=== PATIENT | female | born 2000 | race Caucasian/White ===

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

== ENCOUNTER 2019-09-16 05:24 | Inpatient (IN) | payer BC ==
[~2019-09-16] VITALS: Ht 160 cm; Wt 76.4 kg
[2019-09-16 06:20] LABS: HEMATOCRIT 38.7 % (36.0-48.0); HEMOGLOBIN 12.3 g/dL (12-16); MCH 29.7 pg (26.0-34.0); MCHC 31.8 g/dL (31.0-37.0); MCV 93.5 fL (80.0-100.0); MEAN PLATELET VOLUME 11.6 fL (7.4-10.4); RBC 4.14 10x6/uL (4.00-5.40); RDW 13.2 % (11.5-14.5); WBC 11.4 10x3/uL (4.8-10.8)
[2019-09-16 06:30] LABS: UDS - AMPHET NEGATIVE QUAL (NEGATIVE); UDS - BARB NEGATIVE QUAL (NEGATIVE); UDS - BENZO NEGATIVE QUAL (NEGATIVE); UDS - COCAINE NEGATIVE QUAL (NEGATIVE); UDS - OPIATE NEGATIVE QUAL (NEGATIVE); UDS - PCP NEGATIVE QUAL (NEGATIVE); UDS - THC NEGATIVE QUAL (NEGATIVE)
[2019-09-16] MEDS ORDERED: PRENAVITE1 TAB PO (06:35)
[2019-09-16 06:38] VITALS: BP 119/71; Ht 160 cm; Wt 76.4 kg
--- NOTE | 2019-09-16 21:45 | NUR ---
RECEIVED REPORT ON PT FROM SATINDER LUCAS
--- NOTE | 2019-09-16 22:00 | NUR ---
RECIEVED PT FROM L&D. PT WALKED OVER TO ROOM. SHE HAS NKDA. SHE HAS A LEFT WRIST SL. HER FUNDUS IS FIRM 2 BELOW. SHE HAS A RIGHT SUBLABIAL AND A VAGINAL LACERATION. ASSESSMENT COMPLETED. PT MOTHER IS WITH HER. PT HAS A BABY BOY.
--- NOTE | 2019-09-16 23:00 | NUR ---
PT IS COMPLAINING OF SEVERE PAIN IN HER [place] AREA. SHE IS TRYING NO TO CRY. CALLED DR. BRIGGS AND MED ORDER GIVEN.
--- NOTE | 2019-09-16 23:15 | NUR ---
PT RECEIVED A PERCOCET 5 MG PO WHICH IS A ONE TIME ORDER. SHE RATES HER PAIN AN 8. SHE IS VOIDING WELL. HER LOCHIA IS MEDIUM AMOUNT. SHE HAS TROUBLE GETTING OUT OF BED FROM DISCOMFORT IN YAHIR AREA. PT MOTHER IN ROOM TO STAY THE NIGHT.
[2019-09-16 23:50] VITALS: BP 123/78
--- NOTE | 2019-09-17 | NUR ---
PT IS RESTING QUIETLY AT THIS TIME. SHE IS WATCHING TV. THE BABY IS OUT OF THE ROOM AND I ENCOURAGED HER TO SLEEP WHILE WAITING FOR THE BABY TO RETURN.
--- NOTE | 2019-09-17 02:00 | NUR ---
PT IS RESTING WELL. NO C/O OR NEEDS AT THIS TIME.
--- NOTE | 2019-09-17 04:00 | NUR ---
PT BREASTFEEDOMG BABY. NO C/O OR NEEDS.
--- NOTE | 2019-09-17 05:30 | NUR ---
WALKED IN ROOM TO CHECK ON PT. SHE WAS DOZING HOLDING THE BABY. I EXPLAINED THAT THE BABY COULD NOT SLEEP IN THE BED WITH HER. I PLACED THE BABY IN THE CRIB BY THE PT MOTHER.
--- NOTE | 2019-09-17 05:39 | NUR ---
PT C/O PAIN. RECEICED PO MEDICATION. PT IS REALLY HAVING A HARD TIME GETTING OUT OF BED. THIS IS HER MOST PAINFUL TIME. SHE IS RESTING NOW.
[2019-09-17 06:10] LABS: RAPID PLASMA REAGIN Non Reactive (Non Reactive)
[2019-09-17 07:00] VITALS: BP 103/57
--- NOTE | 2019-09-17 07:48 | NUR ---
REPORT GIVEN TO SATINDER POWELL
[2019-09-17 08:02] LABS: BASOPHILS 0.1 % (0-2); EOSINOPHILS 0.5 % (0-7); HEMATOCRIT 32.3 % (36.0-48.0); HEMOGLOBIN 10.5 g/dL (12-16); IMMATURE GRANULOCYTES 0.2 % (0-5); LYMPHOCYTES 9.2 % (15-50); MCH 30.2 pg (26.0-34.0); MCHC 32.5 g/dL (31.0-37.0); MCV 92.8 fL (80.0-100.0); MEAN PLATELET VOLUME 11.5 fL (7.4-10.4); PLATELET COUNT 162 10x3/uL (130-400); RBC 3.48 10x6/uL (4.00-5.40); RDW 13.2 % (11.5-14.5)
--- NOTE | 2019-09-17 11:32 | NUR ---
0800 MOTHER CAME OUT ASKING FOR ICE. ICE PROVIDED
--- NOTE | 2019-09-17 11:32 | NUR ---
0900 PT ASLEEP N BED BABY NOT IN ROOM PT MOTHER REMAINS AT BEDSIDE
--- NOTE | 2019-09-17 11:33 | NUR ---
0948 DR SYKES AT BEDSIDE UPDATING PATIENT
--- NOTE | 2019-09-17 11:34 | NUR ---
1050 PT IN BED RESTING QUIETLY
--- NOTE | 2019-09-17 13:18 | NUR ---
1312 C/O PAIN 11/11 TO ABDOMINAL AREA MOTRIN 600 MG PO GIVEN
--- NOTE | 2019-09-17 16:38 | MORECARE ---
CASE MANAGEMENT DISCHARGE SUMMARY PATIENT: AILEEN WINCHESTER UNIT: [id number] ADM DATE: 09/16/19 AGE: 18 : [birth year] SEX: F ROOM/BED: D.1222 AUTHOR: CINDY BARNARD PHYSICIAN: REFERRING PHYSICIAN: NICKO BRIGGS DO DATE OF SERVICE: 09/17/19 Discharge Plan Patient Name: AILEEN WINCHESTER Facility: [facility]:[place] : 2000 Planned Disposition: Home Anticipated Discharge Date: 09/17/19 Discharge Date: Expected LOS: 1 Initial Reviewer: [email or web address] Initial Review Date: 09/16/2019 Generated: 09/17/19 5:38 pm Patient Name: AILEEN WINCHESTER Page [id number] at 1638 All edits/amendments must be made on the electronic document DICTATION DATE: 09/17/198 HEAD OF MARKETING: PATRICK 09/17/19 1638 RPT#: [id number] DC DATE: STATUS: ADM IN [facility] [address] [place] [address] END OF REPORT
--- NOTE | 2019-09-17 16:41 | NUR ---
1600 CHECKED IN ON MOTHER AND BABY DENIED ANY COMPLAINTS AT PRESENT MOTHER HAD BABY IN BED AND WAS NURSING HIM. HER VISITOR WAS NOT PRESENT AT THIS TIME
--- NOTE | 2019-09-17 19:00 | NUR ---
REPORT TAKEKN BY COOPER, RN
[2019-09-17 19:20] VITALS: BP 124/70
--- NOTE | 2019-09-17 19:45 | NUR ---
PT ASSESSMENT COMPLETED. PT IS STANDING BY THE PT CRIB TOUCHING THE BABY. SHE IS TALKING TO THE BABY CLAUS ON THE PHONE AND SHOWING HIM THE BABY. I ASKED HER IF SHE WAS GOING TO PICK THE BABY UP AND SHE STATES "NO, I DON'T WANT TO SPOIL HIM" SHE HAS BEEN HEARING THIS FROM HER MOTHER. I TOLD HER AGAIN THAT NEW BABIES CANNOT BE SPOILED AND HE BABY NEEDS TO BE HELD SOME AT LEAST. SHE GAVE NO REPLY TO THIS.
--- NOTE | 2019-09-17 20:45 | NUR ---
PT AND HER MOM ARE WATCHING TV. BABY IS IN THE CRIB. NO C/O OR NEEDS AT THIS TIME.
--- NOTE | 2019-09-17 21:18 | NUR ---
PT IN BED RESTING. NO C/O
--- NOTE | 2019-09-17 23:52 | NUR ---
PT IS RESTING QUIETLY IN HER ROOM. HER MOM IS THERE AND BABY IN THE CRIB SLEEPING.
--- NOTE | 2019-09-18 02:00 | NUR ---
PT IS AWAKE AND HOLDING HER BABY IN HER ARMS. SHE IS BREAST FEEDING. SHE IS DOING WELL. SHE STATES HER PAIN IS MUCH BETTER
--- NOTE | 2019-09-18 04:00 | NUR ---
PT IS AWAKE FEEDING HER BABY. SHE HAS NO C/O OR NEEDS AT THIS TIME. SHE IS BONDING MUCH BETTER TONIGHT WITH HER BABY.
--- NOTE | 2019-09-18 06:06 | NUR ---
PT IS AWAKE FEEDING HER BABY. NO C/O AND NO NEEDS.
--- NOTE | 2019-09-18 07:20 | NUR ---
RECEIVED PT LYING TO RIGHT SIDE IN BED. EYES CLOSED. RESP NON-LABORED. PT NOT DISTURBED TO ALLOW FOR REST. PT MOTHER IN ROOM CARING FOR . WILL NOTIFY NURSE WHEN PT AWAKE FOR VSS/ASSESSMENT.
--- NOTE | 2019-09-18 08:45 | NUR ---
DR SYKES VISITS WITH PT.
--- NOTE | 2019-09-18 08:48 | NUR ---
PT SITTING UP IN BED. AWAKE. CONSUMING BREAKFAST. DENIES PAIN OR NEEDS. TO NOTIFY NURSE WHEN FINISHED WITH BREAKFAST.
[2019-09-18 09:20] VITALS: BP 97/52
--- NOTE | 2019-09-18 09:20 | NUR ---
VSS. HRRR WITHOUT AUDIBLE MURMUR. BBS CLEAR. BS X 4. ABDOMEN SOFT/NON-DISTENDED. FUNDUS FIRM AT U/2. RUBRA LOCHIA SMALL AMT. DENIES HEAVY BLEEDING OR PASSING CLOTS. NEG HOMANS' SIGN. PPP. NO EDEMA NOTED TO BLE. PT C/O ABDOMINAL CRAMPING AND PAIN TO PERINEUM OF "6" ON 0-10 PAIN SCALE. MOTRIN 600 MG GIVEN PO ORDERED. PT ALSO GIVEN AND INSTRUCTED ON DERMAPLAST SPRAY AND TUCKS WIPES. VERBALIZES UNDERSTANDING.
--- NOTE | 2019-09-18 11:05 | NUR ---
PT IN SHOWER AT THIS TIME.
--- NOTE | 2019-09-18 11:43 | NUR ---
PT SITTING UP IN BED. STATES RAYRAY SHOWER WELL. REQUESTS AND RECEIVES ICE WATER.
--- NOTE | 2019-09-18 11:44 | NUR ---
SL DC'D WITH CATHELON INTACT. PRESSURE BANDAGE TO SITE. PT RAYRAY WELL.
--- NOTE | 2019-09-18 12:00 | NUR ---
DISCHARGE INSTRUCTIONS GIVEN TO PT. PT VERBALIZES UNDERSTANDING OF ALL INSTRUCTIONS. COPIES GIVEN TO PT. PT GIVEN ROOMING IN POLICY/FORM AND INSTRUCTED ON POLICY.
--- NOTE | 2019-09-18 12:30 | NUR ---
PT VERBALIZES UNDERSTANDING OF ROOMING IN POLICY. PT DISCHARGED TO ROOMING IN STATUS. NSY STAFF NOTIFIED.
--- NOTE | 2019-09-20 08:40 | MORECARE ---
CASE MANAGEMENT DISCHARGE SUMMARY PATIENT: AILEEN WINCHESTER UNIT: [id number] ADM DATE: 09/16/19 AGE: 18 : [birth year] SEX: F ROOM/BED: D.1222 AUTHOR: CINDY BARNARD PHYSICIAN: REFERRING PHYSICIAN: NICKO BRIGGS DO DATE OF SERVICE: 09/20/19 Discharge Plan Patient Name: AILEEN WINCHESTER Facility: [facility]:[place] : 2000 Planned Disposition: Home Anticipated Discharge Date: 09/17/19 Discharge Date: 09/18/2019 Expected LOS: 1 Initial Reviewer: [email or web address] Initial Review Date: 09/16/2019 Generated: 09/20/19 9:40 am Last DP export: 09/17/19 3:38 p Patient Name: AILEEN WINCHESTER Page [id number] at 0840 All edits/amendments must be made on the electronic document DICTATION DATE: 09/20/19 0840 MOTION AND TIME STUDY TEACHER: PATRICK 09/20/19 0840 RPT#: [id number] DC DATE:09/18/19 STATUS: DIS IN [facility] [address] [place] [address] END OF REPORT
== END 2019-09-18 12:30 | disposition home or self-care (01) | DRG 807 ==
LOC: D.LD 05:24 → D.WS 05:24
PROVIDERS: ADMIT Student in an Organized Health Care Education/Training Program; ATTEND Student in an Organized Health Care Education/Training Program
PROC: 10E0XZZ Delivery of Products of Conception, External Approach (ICD-10-PCS; principal; 2019-09-16)
PROC: 0UQMXZZ Repair Vulva, External Approach (ICD-10-PCS; 2019-09-16)
DX: O99.824 Streptococcus B carrier state complicating childbirth (principal); Z37.0 Single live birth; Z3A.40 40 weeks gestation of pregnancy; O70.0 First degree perineal laceration during delivery